=== PATIENT | female | born 2000 | race Caucasian/White ===

== ENCOUNTER 2020-02-02 03:58 | Inpatient (IN) | payer MEDICAID ==
[2020-02-02] VITALS (38 sets, daily range): BP systolic 114–172; BP diastolic 57–97; PULSE 67–110; TEMP 97.5–98.2
[~2020-02-02] VITALS: Ht 167.6 cm; Wt 112.3 kg
--- NOTE | 2020-02-02 04:00 | NUR ---
0400 G1L0 39.6 WEEK GEST TO LR6 WITH C/O CONTRACTIONS. EFM ON. SVE 1-280/-1. B/P 151/71. HAS HX OF BENIGN ESSENTIAL HYPERTENSION AND TAKING NO MEDICATION FOR THAT. VERY UNCOMFORTABLE WITH CONTRACTIONS. TURNED TO LEFT SIDE. 0410 B/P 134/64 0420 B/P 125/58
[2020-02-02] MEDS ORDERED: PROZAC40 MG PO (04:09)
[2020-02-02] MEDS ORDERED: PRENATA1 CTB PO (04:10)
--- NOTE | 2020-02-02 05:10 | NUR ---
0510 SVE /-1. VERY UNCOMFORTABLE WITH CONTRACTIONS. DR COMBS NOTIFIED AND ORDERS TO ADM IT RECIEVED. 0520 UP TO BR WITH VOID AND CCUA OBTAINED.
--- NOTE | 2020-02-02 05:40 | NUR ---
0540 SITTING STRAIGHT UP IN BED. UNABLE TO OBTAIN CONTINUOUS EFM TRACING WHILE SITTING UP. IV STARTED AND IVPB STARTED. 0545 UNMEASURED EMESIS.
[2020-02-02 06:09] LABS: COLLECTION METHOD CLEAN CATCH
[2020-02-02 06:14] LABS: BASO % 0.2 % (0.0-2.0); EOS % 0.2 % (0-4.0); GRAN % 73.3 % (42.2-75.2); HEMATOCRIT 37.8 % (35.0-45.0); HEMOGLOBIN 12.7 g/dl (12.0-15.0); LYMPH # 2.4 (1.2-3.4); LYMPH % 17.9 % (20.0-51.0); MEAN CELL VOLUME 89 fl (80.0-95.0); MEAN CORPUSCULAR HEMOGLOBIN 30 pg (26.0-32.0); MEAN CORPUSCULAR HGB CONC 34 g/dl (33.0-37.0); MEAN PLATELET VOLUME 11.1 fl (7.4-10.4); MONO % 7.4 % (1.7-9.3); PLATELET COUNT 254 K/mm3 (130-400); RED BLOOD COUNT 4.25 M/mm3 (4.10-5.30); REDCELL DISTRIBUTION WIDTH-CV 14.3 % (11.5-14.5)
--- NOTE | 2020-02-02 06:25 | NUR ---
Report received from Guy REIS. Pt up to bathroom, voids. Pt sitting up on side of bed and for epidural. 0630:Anabel BELTRAN at bedside. Procedure explained. Unable to obtain continuous FHR tracing. EFM moved around. Intermittent FHR 120 bpm. Pulse ox placed and maternal heart rate tracing. Epidural placed, single shot at 0642 and test dose at 0644. Pt tolerated well. See anesthesia notes. After epidural pt repositioned wedge left. 0718:Pt comfortable with epidural. SVE 3/80/-2 with bulgy bag and bloody show. 0745: Pt calls out and states she is feeling leaking. SVE: grossly SROM, clear fluid noted. SVE: 4/90/-2. 0755:Dr Armstrong notified. 0800:Dr Armstrong here. Updated on pt status and reviews lab results. Will notify physician if BP is >160/110 consistently.
[2020-02-02 06:26] LABS: ALBUMIN 3.7 gm/dL (3.5-5.0); BILIRUBIN,TOTAL 0.3 mg/dL (0.0-1.0); CALCIUM 9.4 mg/dL (8.4-10.2); CREATININE, serum 0.51 (0.52-1.25); POTASSIUM 4.3 mmol/L (3.4-5.0); TOTAL PROTEIN 7.2 gm/dL (6.4-8.2)
[2020-02-02 06:26] LABS: MUCOUS Present /lpf; PH 6 (5-8); SQUAMOUS EPITHELIAL 0-2 /hpf; URINE APPEARANCE Clear; URINE BACTERIA None Seen /hpf; URINE BILIRUBIN Negative (NEGATIVE); URINE BLOOD 2+ (NEGATIVE); URINE COLOR Yellow; URINE GLUCOSE Negative (NEGATIVE); URINE KETONE Negative (NEGATIVE); URINE LEUKOCYTE ESTERASE Negative (NEGATIVE); URINE NITRATE Negative (NEGATIVE); URINE PROTEIN(semi-quant) Negative (NEGATIVE); URINE RBC 0-2 /hpf; URINE UROBILINOGEN Negative (NEGATIVE); URINE WBC 0-2 /hpf
--- NOTE | 2020-02-02 08:10 | NUR ---
Holloway catheter placed. Pt then repositioned to left lateral. 0811 and 0815 FHR off monitor, this nurse at bedside and EFM moved. Unsure if FHR is tracing 100bpmm. Scalp electrode placed. SVE: 5/-1 with bloody show. Variable decel noted, pt repositioned to left lateral.
--- NOTE | 2020-02-02 11:00 | NUR ---
Scalp electrode not tracing, external monitor placed. SVE: AL/100/0. External tracing well at this time, will not replace internal. 1115:Dr Armstrong called and updated on SVE and recurrent early decels with decrease in baseline to 110bpm. Moderate variability noted, physician denies any further orders, continue to monitor.
--- NOTE | 2020-02-02 12:10 | NUR ---
Recurrent early decelerations noted, baseline betweeen 110-120bpm. SVE: complete +1. Positive scalp stim noted with exam. After exam prolonged decel noted. FHR decreasing to 80-90bpm returning to 120bpm then decreasing again. Pt repositioned to right lateral, then again to left lateral. 1215:Dr Chun called and notified she is needed. She is on her way at this time. 1221:Dr Chun here. SVE: complete +2. Pt prepped for delivery. Holloway catheter removed. 1231:Pt begins pushing with physician. Physician reviews monitor strip. Pt pushes for 11 minutes. 1242: of infants head and shoulders. Cord clamped and infant in care of La REIS. 1245:Spontaneous delivery of placenta. Lr with pitocin infusing per protocol at 333ml/hr. 2nd degree and right labial lac repaired by physician. Fundus firm, bleeding WNL. Hematoma noted to top of right labia. Will use ice and continue to monitor. Pericare done and pt sitting up holding infant.
--- NOTE | 2020-02-02 15:30 | NUR ---
Pt up to bathroom with assist. Pt ambulates without difficulty. Voids 300cc. Pericare instructions given. Pt to wheelchair and to room 216. Pt denies any pain. Fundus firm, bleeding WNL.
[2020-02-03 02:30] VITALS: BP 132/68; PULSE 81; TEMP 98.3
[2020-02-03 07:30] VITALS: BP 123/52; PULSE 78; TEMP 98
[2020-02-03] MEDS ORDERED: MOTRIN 600600 MG/TAB PO (08:15)
== END 2020-02-03 14:55 | disposition home or self-care (01) | DRG 807 ==
LOC: LDRO 03:58 → OB 05:30 → LDR 05:30 → OB 15:30
PROVIDERS: Obstetrics & Gynecology; ADMIT Obstetrics & Gynecology
PROC: 10E0XZZ Delivery of Products of Conception, External Approach (ICD-10-PCS; principal; 2020-02-02)
PROC: 0KQM0ZZ Repair Perineum Muscle, Open Approach (ICD-10-PCS; 2020-02-02)
DX: O99.824 Streptococcus B carrier state complicating childbirth (principal); Z37.0 Single live birth; Z3A.39 39 weeks gestation of pregnancy; O99.344 Other mental disorders complicating childbirth; F32.9 Major depressive disorder, single episode, unspecified; O70.1 Second degree perineal laceration during delivery; O71.82 Other specified trauma to perineum and vulva
CPT/HCPCS: J2540; J2590; J2795; J7120